=== PATIENT | female | born 2000 ===

== ENCOUNTER 2023-07-29 18:59 | Observation (INO) | payer MEDICAID, OTHER ==
[2023-07-29 20:51] LABS: Fern Testing Negative
== END 2023-07-29 21:22 | disposition home or self-care (01) ==
LOC: LDRP 18:59
PROVIDERS: ADMIT Obstetrics & Gynecology; ATTEND Obstetrics & Gynecology
DX: O42.92 Full-term premature rupture of membranes, unspecified as to length of time between rupture and onset of labor (principal); O26.893 Other specified pregnancy related conditions, third trimester; R11.0 Nausea; Z3A.32 32 weeks gestation of pregnancy
CPT/HCPCS: 59025; 76815; 81002; 84112; 94760; G0378; Q0114